=== PATIENT | female | born 1950 | race Caucasian/White ===

== ENCOUNTER 2016-03-18 22:55 | Emergency (ER) | payer MEDICARE ==
[~2016-03-18] VITALS: Ht 157.5 cm; Wt 83.5 kg
[~2016-03-18 22:55] MED LIST: ACTO5TAB PO; ATEN1TAB74 PO; FEXO180 PO; IBUP-232 PO; LORT5TAB PO
[2016-03-18 23:10] VITALS: BP 149/85; PULSE 72; RESP 18; TEMP 98.5; O2SAT 95
[2016-03-19 03:45] VITALS: PULSE 70; RESP 20; O2SAT 90
[2016-03-19] MEDS ORDERED: IBUPROFEN 800 MG TAB PO ONE (04:00)
--- NOTE | 2016-03-19 04:25 | RADHPO ---
EXAM DATE/TIME: 03/19/2016 03:56 [place] COMPARISON: No previous studies available for comparison. INDICATIONS : Cough. MEDICAL HISTORY : None. SURGICAL HISTORY : None. ENCOUNTER: Initial ACUITY: 1 day PAIN SCORE: 3/10 LOCATION: Bilateral chest FINDINGS: A single view of the chest demonstrates the lungs to be symmetrically aerated without evidence of mas s, infiltrate or effusion. The cardiomediastinal contours are unremarkable. Osseous structures are intact. CONCLUSION: No acute disease. Dom Lynn MD on March 19, 2016 at 4:24 Board Certified Radiologist. This report was verified electronically.
[2016-03-19] MEDS ORDERED: ATEN100T PO (04:38)
[2016-03-19] MEDS ORDERED: ATEN50TA PO (04:38)
[2016-03-19] MEDS ORDERED: ALLO100T PO (04:38)
[2016-03-19] MEDS ORDERED: FEXO15TA PO (04:38)
[2016-03-19] MEDS ORDERED: HYDR-3533 PO (04:47)
[2016-03-19] MEDS ORDERED: BENZ100 PO (04:47)
[2016-03-19] MEDS ORDERED: ZOFR4TAB3 SL (04:47)
[2016-03-19] MEDS ORDERED: ALBU6.7H INH (04:47)
--- NOTE | 2016-03-19 04:50 | PD ---
HPI Chief Complaint: Cold / Flu Symptoms Time Seen by Provider: 03:47 Travel History International Travel<30 days: No Contact w/Intl Traveler<30days: No Traveled to known affect area: No History of Present Illness HPI 65 year-old female with cough since Friday with abdominal wall strain or pain in the abdominal wall secondary to forceful coughing also since Friday. Patient reports symptoms came on abruptly with forceful coughing sharp and sudden stabbing-like in nature. Patient's had no fever or chills. Cough has been nonproductive. Patient denies any hemoptysis. Patient denies chest pain or shortness of breath. Patient denies previous history of abdominal injury or hernia. Patient is not noticed any bruising to the area or mass to the area. Patient denies any vomiting or diarrhea. Patient also denies any anorexia. Patient's had no history of colitis biliary colic or diverticulitis. Patient has had previous partial colectomy with colostomy reversal on the past denies history of appendicitis or appendectomy. Patient rates her pain 7/10 in intensity. Patient states sitting upright provide some relief laying supine or standing increases discomfort but does not worsen with ambulation. Patient has had no dysuria frequency urgency flank pain or hematuria. PFSH Past Medical History Narrative Medical Hypertension partial colectomy previous colostomy with reversal no tobacco use nursing notes reviewed Diminished Hearing: No Hypertension: Yes Pneumonia: Yes Past Surgical History Other Surgery: Yes (COLOSTOMY - 1978 - REVERSE ) Social History Alcohol Use: No Tobacco Use: No Substance Use: No Allergies-Medications (Allergen,Severity, Reaction): Coded Allergies: Codeine (Verified Allergy, Severe, Nausea/Vomiting, 03/18/16) Reported Meds & Prescriptions Reported Meds & Active Scripts Active Zofran Odt (Ondansetron Odt) 4 Mg Tab 4 Mg SL Q6HR PRN Lortab (Hydrocodone-Acetaminophen) 5-325 Mg Tab 1 Tab PO Q6H PRN Tessalon Perles (Benzonatate) 100 Mg Cap 100 Mg PO Q8HR PRN Proventil Hfa 6.7 GM Inh (Albuterol Sulfate) 90 Mcg/Act Aer 2 Puff INH Q4-6H PRN Reported Allopurinol 100 Mg Tab 100 Mg PO DAILY Atenolol 100 Mg Tab 100 Mg PO DAILY Basia Allergy (Fexofenadine HCl) 180 Mg Tab 180 Mg PO DAILY PRN Review of Systems Except as stated in HPI: all other systems reviewed are Neg General / Constitutional: No: Fever, Chills HENT: No: Congestion Cardiovascular: No: Chest Pain or Discomfort Respiratory: Positive: Cough, No: Shortness of Breath Gastrointestinal: Positive: Abdominal Pain, No: Nausea, Vomiting, Diarrhea Genitourinary: No: Urgency, Frequency, Dysuria Musculoskeletal: No: Myalgias, Arthralgias Skin: No Rash Neurologic: No: Weakness Psychiatric: No: Anxiety Hematologic/Lymphatic: No: Lymph Node Enlargement Physical Exam Narrative GENERAL: Well-developed well-nourished female in no acute distress no respiratory distress SKIN: Warm and dry. HEAD: Normocephalic. EYES: No scleral icterus. No injection or drainage. NECK: Supple, trachea midline. No JVD or lymphadenopathy. CARDIOVASCULAR: Regular rate and rhythm without murmurs, gallops, or rubs. RESPIRATORY: Breath sounds equal bilaterally. No accessory muscle use. GASTROINTESTINAL: Abdomen soft, tenderness to palpation along the right abdominal wall without guarding or rebound no ecchymosis no soft tissue mass no reducible mass, nondistended. MUSCULOSKELETAL: No cyanosis, or edema. BACK: Nontender without obvious deformity. No CVA tenderness. Data Data Last Documented VS Vital Signs Date Time Temp Pulse Resp B/P Pulse Ox O2 Delivery O2 Flow Rate FiO2 03/19/16 05:03 68 20 142/81 95 03/18/16 23:10 98.5 Orders Chest, Single Ap (03/19/16 ) Ibuprofen (Motrin) (03/19/16 04:00) [facility] Medical Decision Making Medical Screen Exam Complete: Yes Emergency Medical Condition: Yes Medical Record Reviewed: Yes Interpretation(s) Last Impressions Chest X-Ray 03/19/16 0000 Signed Impressions: Service Date/Time: Saturday, March 19, 2016 03:56 - CONCLUSION: No acute disease. Dom Lynn MD Differential Diagnosis Viral syndrome, bronchitis, pneumonia, abdominal wall strain, ventral hernia, renal colic; also to consider appendicitis or diverticulitis although patient has no fever no nausea vomiting no anorexia and pain abrupt in onset. Narrative Course Chest x-ray ordered patient administered ibuprofen X-ray reveals no infiltrate or pneumothorax; patient's abdomen reminds tender to the right side with guarding or rebound and no palpable mass or reducible mass. Patient most likely has abdominal wall strain without clear evidence for hernia abdominal wall tear. No evidence for pneumonia. Patient is stable for outpatient management. Diagnosis Primary Impression: Cough due to bronchospasm Additional Impression: Abdominal wall strain Qualified Code: S39.011A - Abdominal wall strain, initial encounter Referrals: Primary Care Physician call for appointment Patient Instructions: General Instructions Additional Instructions: Increase fluid hydration Follow-up with primary care provider Take medications as prescribed as needed May use ibuprofen 600 mg as often as every 6 hours for pain associated with inflammation; take this medication with food or with an antacid; avoid prolonged use of high-dose ibuprofen for greater than 3-4 days Take acetaminophen/Tylenol every 4 hours as needed for fever 100.4F or greater Med/Other Pt SpecificInfo: Prescription(s) given Scripts Ondansetron Odt (Zofran Odt)4 Mg Tab4 Mg SL Q6HR PRN (Nausea/Vomiting) #10 TAB Ref 0 Prov:Concepcion Granados MD 03/19/16 Hydrocodone-Acetaminophen (Lortab)5-325 Mg Tab1 Tab PO Q6H PRN (PAIN) #7 TAB Ref 0 Prov:Concepcion Granados MD 03/19/16 Benzonatate (Tessalon Perles)100 Mg [id number] Mg PO Q8HR PRN (COUGH) #7 CAP Ref 0 Prov:Concepcion Granados MD 03/19/16 Albuterol 6.7 GM Inh (Proventil Hfa 6.7 GM Inh)90 Mcg/Act Aer2 Puff INH Q4-6H PRN (SHORTNESS OF BREATH) #1 INHALER Ref 0 Prov:Concepcion Granados MD 03/19/16 Disposition: 01 DISCHARGE HOME Condition: Stable Concepcion Granados MD Mar 19, 2016 04:50
[2016-03-19 05:03] VITALS: BP 142/81
[2016-04-08] MEDS ORDERED: MULTTAB67 PO (11:09)
[2016-04-08] MEDS ORDERED: FEXO15TA PO (11:39)
[2016-04-08] MEDS ORDERED: ALLO100T PO (11:39)
[2016-04-08] MEDS ORDERED: ATEN100T PO (11:39)
== END 2016-03-19 05:05 | disposition home or self-care (01) ==
LOC: PHED 22:55 → PHEFT 03-19 05:05
DX: R05 Cough (principal); J98.01 Acute bronchospasm; S39.011A Strain of muscle, fascia and tendon of abdomen, initial encounter; I10 Essential (primary) hypertension
CPT/HCPCS: 71010; 99283